=== PATIENT | male | born 1930 | race African-American/Black ===

== ENCOUNTER → 2016-11-28 | Outpatient (CLI) | payer MEDICARE, OTHER ==
[~2016-11-28] MED LIST: ADALAT CC90 MG PO; ALDACTONE 25MG25 MG PO; ALLOPURINOL100 MG PO; ALLOPURINOL300 MG PO; APRESOLINE 25MG25 MG PO; ASPIRIN 81M81 MG/TA2 PO; ASPIRIN E.C. 8181 MG PO; B-12 250 MCG PO; BUPROPION100 MG PO; CARVEDILOL PO; CARVEDILOL25 MG PO; CEPHALEXIN500 M1 PO; CORDARONE200 MG PO; COREG 25MG25 MG/TAB PO; COREG3.125 MG PO; COREG6.25 MG PO; DIFLUCAN 100MG100 MG PO; DIGOXIN PO; DIOVAN80 M1 PO; FLAXSEED OIL1000 MG PO; GLUCOSAMINE 1000; IMDUR 60MG60 MG/TAB PO; IPRATROPIUM BROM3 M1 IH; ISORDIL 20MG20 M1 PO; KLOR-CON 1010 MEQ PO; LASIX 40MG TABL40 MG PO; LIPITOR20 MG PO; LISINOPRIL; LISINOPRIL10 MG PO; LISINOPRIL5 MG PO; MEXITIL 150MG150 MG PO; MOBIC15 MG PO; NATURAL IRON65 MG PO; NORCO 325 MG-51 TAB PO; NORVASC 10MG10 MG PO; NORVASC 5MG5 MG/TAB PO; NORVASC PO; OMNICEF 300MG300 MG PO; ONE-A-DAY MEN'S1 TAB PO; OYSCO 500500 M1 PO; PERCOCET 325 MG1 TA2 PO; PLAVIX 75MG TAB75 MG PO; SODIUM BICARBO650 MG PO; THEO-24 20200 MG/CAP PO; VIAGRA25 MG PO; VITAMIN D31000 IU PO; VITAMINC1000TA PO; ZITHROMAX 250M250 MG PO; ZYLOPRIM 300MG300 MG PO; ZYRTEC 10MG
[2016-11-28 10:48] LABS: ARTERIAL BLD GAS O2 SATURATION 92.4 % (92-100); ARTERIAL BLD GAS TCO2 CT 23.4; ARTERIAL BLOOD GAS BASE EXCESS -0.7 (-2-2); ARTERIAL BLOOD GAS HCO3 22.4 meq/L (22-26); ARTERIAL BLOOD GAS PHT 7.46 C (7.35-7.45); ARTERIAL BLOOD GAS PO2 65.6 mmHg (80-100); ARTERIAL BLOOD GAS PO2T 65.6 (80-100); ARTERIAL BLOOD GAS pH 7.46 (7.35-7.45); OXYHEMOGLOBIN 91.2 %
[2016-11-28 10:49] LABS: ALLEN TEST YES; ALLENS TEST RESULT PASS; ATS? YES
== END ==
LOC: COL.PUL 09:57
PROVIDERS: Physician Assistant
DX: R06.02 Shortness of breath (principal)

== ENCOUNTER → 2016-12-25 | Outpatient (CLI) | payer MEDICARE, OTHER ==
[2016-12-25 15:43] LABS: BASO % 0.4 % (0.0-2.0); EOS # 0.1 (0.0-0.7); EOS % 2.4 % (0-4.0); GRAN # 3.2 (1.4-6.5); GRAN % 64.1 % (42.2-75.2); HEMATOCRIT 37.5 % (42.0-52.0); LYMPH # 1.1 (1.2-3.4); LYMPH % 21.4 % (20.0-51.0); MEAN CELL VOLUME 101 fl (80.0-100.0); MEAN CORPUSCULAR HEMOGLOBIN 32 pg (27.0-31.0); MEAN CORPUSCULAR HGB CONC 32 g/dl (33.0-37.0); MONO # 0.6 (0.1-0.6); MONO % 11.5 % (1.7-9.3); PLATELET COUNT 142 K/mm3 (130-400); RED BLOOD COUNT 3.71 M/mm3 (4.20-5.60); REDCELL DISTRIBUTION WIDTH-CV 13.8 % (11.5-14.5)
[2016-12-25 15:47] LABS: HEMOGLOBIN 11.8 g/dl (13.5-18.0)
[2016-12-25 15:58] LABS: CALCIUM 10.2 mg/dL (8.4-10.2); CREATININE, serum 1.93 mg/dL (0.66-1.25); POTASSIUM 5.1 mmol/L (3.4-5.0)
== END ==
LOC: COL.LAB 14:59
PROVIDERS: Internal Medicine Interventional Cardiology
DX: I72.8 Aneurysm of other specified arteries (principal)

== ENCOUNTER → 2018-06-19 | Outpatient (CLI) | payer MEDICARE, OTHER | LOC: COL.VAS 11:57 | DX: N18.3 Chronic kidney disease, stage 3 (moderate) (principal); N17.9 Acute kidney failure, unspecified | CPT/HCPCS: G0365 ==

== ENCOUNTER 2019-10-28 14:21 | Inpatient (IN) | payer MEDICARE, OTHER ==
[~2019-10-28] VITALS: Ht 167.6 cm; Wt 52.9 kg
[~2019-10-28 14:21] MED LIST changes: +ENTRESTO 24 MG1 EACH PO; +LASIX 20MG TABL20 MG PO; +MASON NATURAL2000 IU PO; +MULTI VITAMINS1 TAB PO; +OMEGA-3 1000 MG1 CAP PO; -VITAMIN D31000 IU PO
--- NOTE | 2019-10-28 15:30 | NUR ---
Patient to room 352 by wheelchair. A&Ox3, reporting pain in legs. No pain medication requested. Nursing staff oriented patient to room ,call light and bed. VSS. Fistula right forearm. at the bedside. No further needs expressed from patient. Call light within reach. Will call Dr Salcedo for additional orders.
[2019-10-28 15:55] VITALS: BP 146/76; PULSE 81; TEMP 98
--- NOTE | 2019-10-28 18:30 | NUR ---
Patient resting in bed, at the bedside. A&Ox3, reporting pain in legs. No pain medication requested. VSS. IV CDI, fluids infusing. PAtient complaints of being cold, warm blankets provided when requested. No further needs expressed from patient. Call light within reach
--- NOTE | 2019-10-28 20:15 | NUR ---
Report received from Adriana JIMENEZ. Pt resting in bed with eyes closed at this time.
[2019-10-28 20:54] LABS: COLLECTION METHOD CLEAN CATCH
[2019-10-28 21:02] LABS: PH 5 (5-8); SQUAMOUS EPITHELIAL 0-2 /hpf; URINE APPEARANCE Clear; URINE BACTERIA None Seen /hpf; URINE BILIRUBIN Negative (NEGATIVE); URINE BLOOD Negative (NEGATIVE); URINE COLOR Yellow; URINE GLUCOSE Negative (NEGATIVE); URINE KETONE Negative (NEGATIVE); URINE LEUKOCYTE ESTERASE Negative (NEGATIVE); URINE NITRATE Negative (NEGATIVE); URINE PROTEIN(semi-quant) 1+ (NEGATIVE); URINE RBC 0-2 /hpf; URINE UROBILINOGEN Negative (NEGATIVE); URINE WBC 0-2 /hpf
[2019-10-28 21:53] VITALS: BP 149/71; PULSE 74; TEMP 97.5
[2019-10-29] VITALS (7 sets, daily range): BP systolic 108–126; BP diastolic 54–63; PULSE 62–78; TEMP 97.4–98.3
--- NOTE | 2019-10-29 00:34 | NUR ---
Pt medication adminstered at this time. Delay was due to non verification of medication X2. Clarification required for dosing required for both medication which was obtained via pt and pts spouse. Following some time after adjustment to medication rec, E pharmacy was informed. Verification in medication on EMAR received. BP appropriate for dosing, medication administered.
[2019-10-29 06:10] LABS: BASO % 0.2 % (0.0-2.0); EOS # 0.2 (0.0-0.7); EOS % 3.5 % (0-4.0); GRAN # 3.3 (1.4-6.5); LYMPH # 0.6 (1.2-3.4); LYMPH % 12.6 % (20.0-51.0); MEAN CELL VOLUME 105 fl (80.0-100.0); MEAN CORPUSCULAR HGB CONC 30 g/dl (33.0-37.0); MEAN PLATELET VOLUME 11.5 fl (7.4-10.4); MONO # 0.5 (0.1-0.6); MONO % 11.5 % (1.7-9.3); PLATELET COUNT 65 K/mm3 (130-400); RED BLOOD COUNT 2.28 M/mm3 (4.20-5.60); REDCELL DISTRIBUTION WIDTH-CV 12.5 % (11.5-14.5)
[2019-10-29 06:15] LABS: INR 1.2 (0.8-3.0)
[2019-10-29 06:16] LABS: HEMATOCRIT 23.9 % (42.0-52.0); HEMOGLOBIN 7.2 g/dl (13.5-18.0); MEAN CORPUSCULAR HEMOGLOBIN 32 pg (27.0-31.0)
[2019-10-29 06:25] LABS: ALBUMIN 3.2 gm/dL (3.5-5.0); BILIRUBIN,TOTAL 0.4 mg/dL (0.0-1.0); CALCIUM 8.4 mg/dL (8.4-10.2); CREATININE, serum 5.1 (0.66-1.25); POTASSIUM 5.3 mmol/L (3.4-5.0); TOTAL PROTEIN 6.1 gm/dL (6.4-8.2)
--- NOTE | 2019-10-29 06:59 | NUR ---
Pt report provided to Prosper JIMENEZ. Pt resting in bed at this time.
--- NOTE | 2019-10-29 09:35 | NUR ---
Pt awake and alert this morning, family in room, no C/O pain at this time, shift assessments complete, left Pt call light in reCH, BED IN LOWEST POSITION.
--- NOTE | 2019-10-29 15:41 | NUR ---
TARIQ met with the patient and his , Ender (ph#[phone]), to discuss discharge plan. The patient lives in [place] with his . He reports needing some assistance with bathing and has a cane and walker. He states that his helps him with bathing. The patient's PCP is Dr. Tyson Philippe and he receives his medications at the [facility]. He reports no difficulties obtaining his meds. The patient does not have advanced directives in EMR, but he states that he does have them completed. He states that his DPOA-HC is his . The patient plans to return home with his upon discharge. No additional needs at this time.
--- NOTE | 2019-10-29 18:42 | NUR ---
Pt resting in the room today, no C/O pain, sat up in the recliner for about 2 hours during the day, VS have remained stable.
[2019-10-30 04:10] VITALS: BP 134/54; PULSE 66; TEMP 97.7
[2019-10-30 08:29] VITALS: BP 144/72; PULSE 69; TEMP 98.4
--- NOTE | 2019-10-30 08:35 | NUR ---
PATIENT ASSESSMENT COMPLETED. HE REPORTS THAT HE HAS HAD NO MORE DIARRHEA SINCE TAKING THE IMMODIUM. HE DENIES ANY PAIN OR NAUSEA.
[2019-10-30 11:54] VITALS: BP 131/72; PULSE 68; TEMP 98
[2019-10-30 12:08] LABS: BASO % 0.2 % (0.0-2.0); EOS # 0.2 (0.0-0.7); EOS % 3.9 % (0-4.0); GRAN # 3.2 (1.4-6.5); GRAN % 68.9 % (42.2-75.2); HEMATOCRIT 25.8 % (42.0-52.0); HEMOGLOBIN 8.1 g/dl (13.5-18.0); LYMPH # 0.6 (1.2-3.4); LYMPH % 13.3 % (20.0-51.0); MEAN CELL VOLUME 103 fl (80.0-100.0); MEAN CORPUSCULAR HEMOGLOBIN 32 pg (27.0-31.0); MEAN CORPUSCULAR HGB CONC 31 g/dl (33.0-37.0); MEAN PLATELET VOLUME 10.7 fl (7.4-10.4); MONO # 0.6 (0.1-0.6); MONO % 12.6 % (1.7-9.3); PLATELET COUNT 76 K/mm3 (130-400); REDCELL DISTRIBUTION WIDTH-CV 12.6 % (11.5-14.5)
[2019-10-30 12:14] LABS: ALBUMIN 3.6 gm/dL (3.5-5.0); CALCIUM 9.4 mg/dL (8.4-10.2); CREATININE, serum 4.67 (0.66-1.25); PHOSPHOROUS 4.5 mg/dL (2.5-4.5)
[2019-10-30 17:14] VITALS: BP 152/77; PULSE 69; TEMP 97.9
--- NOTE | 2019-10-30 17:27 | NUR ---
Patient resting in bed. Denies pain. Has had 2 loose stools. VSS. IV CDI. Fistula CDI. Caregiver at the bedside. No further needs expressed from patient. Call light within reach
[2019-10-30 19:53] VITALS: BP 111/56; PULSE 53; TEMP 98
--- NOTE | 2019-10-30 20:13 | NUR ---
Lying in bed on right side with eyes closed. Opens eyes when name called out. Denies pain. Has had two loose bowel movements in the past hour and would like medication to help stop the loose stools. Patient denies further needs at this time.
--- NOTE | 2019-10-30 22:02 | NUR ---
Lying in bed with eyes closed. Respirations even and unlabored. No signs or symptoms of discomfort noted at this time.
--- NOTE | 2019-10-30 23:02 | NUR ---
Patient voided 75mL dark clear yellow urine. Denies feeling like he still needs to urinate or feeling like bladder is full. Bladder scan completed, results with zero. Patient denies needs at this time.
[2019-10-30 23:30] VITALS: BP 110/59; PULSE 70; TEMP 98.2
--- NOTE | 2019-10-31 00:30 | NUR ---
Lying in bed with eyes closed. Respirations even and unlabored. No signs or symptoms of discomfort noted at this time.
--- NOTE | 2019-10-31 03:23 | NUR ---
Lying in bed with eyes open. Just urinated 50mL clear yellow urine. Bladder scan done at this time and 1mL noted in bladder. Patient denies feeling fullness in bladder or urge to urinate. Denies pain or further needs at this time.
[2019-10-31 03:25] VITALS: BP 130/64; PULSE 68; TEMP 98.2
--- NOTE | 2019-10-31 05:49 | NUR ---
Lying in bed with eyes closed. Respirations even and unlabored. No signs or symptoms of discomfort noted.
[2019-10-31 08:00] VITALS: BP 153/79; PULSE 77
--- NOTE | 2019-10-31 09:34 | NUR ---
PATIENT ASSESSMENT COMPLETED. HE IS RESTING IN BED WITH FRIEND AT HIS BEDSIDE. DENIES OTHER NEEDS
[2019-10-31 12:09] VITALS: BP 132/49; PULSE 70; TEMP 98
[2019-10-31 13:07] LABS: ALBUMIN 3.6 gm/dL (3.5-5.0); CALCIUM 9.2 mg/dL (8.4-10.2); CREATININE, serum 4.31 (0.66-1.25); PHOSPHOROUS 4.2 mg/dL (2.5-4.5)
[2019-10-31 16:00] VITALS: BP 123/59; PULSE 67; TEMP 97.6
--- NOTE | 2019-10-31 16:12 | NUR ---
I TRIED TO GET YOAN TO PUT ON HIS SCD'S AND HE TELLS ME THAT HE DOESN'T WANT THEM ON RIGHT NOW MAYBE LATER.
--- NOTE | 2019-10-31 19:43 | NUR ---
Lying in bed with eyes closed. Eyes open when name called out. Denies pain or any loose stools. Significant other at bedside. IV infusing without difficulty. Patient denies any needs or concerns at this time.
[2019-10-31 20:08] VITALS: BP 105/57; PULSE 69; TEMP 98.2
[2019-10-31 22:44] VITALS: BP 115/63; PULSE 65; TEMP 97.9
--- NOTE | 2019-10-31 23:42 | NUR ---
Lying in bed with eyes closed. Eyes open when name called out. Denies pain or any discomfort. Denies any needs or concerns at this time.
--- NOTE | 2019-11-01 01:46 | NUR ---
Lying on left side in bed with eyes closed. Bipap on. Respirations even and unlabored. No signs or symptoms of discomfort noted.
--- NOTE | 2019-11-01 01:48 | NUR ---
Lying supine in bed with eyes closed. Respirations even and unlabored. No signs or symptoms of discomfort noted at this time.
[2019-11-01 03:03] VITALS: BP 122/52; PULSE 66; TEMP 97.8
--- NOTE | 2019-11-01 03:36 | NUR ---
Lying on right side in bed. Denies pain or any needs at this time.
--- NOTE | 2019-11-01 07:15 | NUR ---
Report received from BARBARA Vann. Pt in bed resting with at bedside, sleeping, will continue to monitor.
[2019-11-01 07:43] VITALS: BP 135/74; PULSE 59; TEMP 98.2
[2019-11-01 07:44] LABS: BASO % 0.5 % (0.0-2.0); EOS # 0.2 (0.0-0.7); EOS % 4.1 % (0-4.0); GRAN % 67.2 % (42.2-75.2); LYMPH # 0.6 (1.2-3.4); LYMPH % 13.2 % (20.0-51.0); MEAN CELL VOLUME 103 fl (80.0-100.0); MEAN CORPUSCULAR HGB CONC 32 g/dl (33.0-37.0); MEAN PLATELET VOLUME 11.1 fl (7.4-10.4); MONO # 0.7 (0.1-0.6); MONO % 14.8 % (1.7-9.3); PLATELET COUNT 76 K/mm3 (130-400); RED BLOOD COUNT 2.47 M/mm3 (4.20-5.60); REDCELL DISTRIBUTION WIDTH-CV 12.9 % (11.5-14.5)
[2019-11-01 07:45] LABS: HEMATOCRIT 25.4 % (42.0-52.0); HEMOGLOBIN 8.1 g/dl (13.5-18.0); MEAN CORPUSCULAR HEMOGLOBIN 33 pg (27.0-31.0)
[2019-11-01 07:53] LABS: ALBUMIN 3.5 gm/dL (3.5-5.0); CALCIUM 8.8 mg/dL (8.4-10.2); PHOSPHOROUS 4.3 mg/dL (2.5-4.5); POTASSIUM 5.6 mmol/L (3.4-5.0)
--- NOTE | 2019-11-01 10:00 | NUR ---
Assessment charted. Pt feeling well, anticipating discharge today. INT to LFA, RFA A/V fistula. Up to shower, will continue to monitor.
--- NOTE | 2019-11-01 11:03 | NUR ---
The patient is to discharge back home with his today, 11/01. SW met with the patient and his to present and explain the IM form. The patient was sleeping. The patient's verbalized understanding, signed, and she was provided a copy. No additional needs at this time.
[2019-11-01 12:42] VITALS: BP 125/60; PULSE 62; TEMP 98.1
--- NOTE | 2019-11-01 12:56 | NUR ---
Discharge teaching completed at this time. pt received discharge packet, INT dc'd, tip intact. Pt wants to eat lunch and then will leave via w/c with all bleongings after lunch. Criteria met.
== END 2019-11-01 13:00 | disposition home or self-care (01) | DRG 682 ==
LOC: MEDICAL 14:21
PROVIDERS: ADMIT Internal Medicine Nephrology
DX: N17.9 Acute kidney failure, unspecified (principal); E43 Unspecified severe protein-calorie malnutrition; I13.0 Hypertensive heart and chronic kidney disease with heart failure and stage 1 through stage 4 chronic kidney disease, or unspecified chronic kidney disease; K52.9 Noninfective gastroenteritis and colitis, unspecified; N18.4 Chronic kidney disease, stage 4 (severe); I50.9 Heart failure, unspecified; D63.1 Anemia in chronic kidney disease; I27.20 Pulmonary hypertension, unspecified; I73.9 Peripheral vascular disease, unspecified; F32.9 Major depressive disorder, single episode, unspecified; G89.29 Other chronic pain; Z95.0 Presence of cardiac pacemaker; Z87.440 Personal history of urinary (tract) infections; Z87.01 Personal history of pneumonia (recurrent); Z79.82 Long term (current) use of aspirin; Z79.891 Long term (current) use of opiate analgesic; Z87.891 Personal history of nicotine dependence

== ENCOUNTER 2020-06-09 18:39 | Emergency (ER) | payer MEDICARE, OTHER ==
[~2020-06-09] VITALS: Ht 170.2 cm; Wt 63.6 kg
[~2020-06-09 18:39] MED LIST changes: +APRESOLINE 10MG10 MG PO; +COREG 6.256.25 MG/TA PO
[2020-06-09 18:43] VITALS: TEMP 98.9
[2020-06-09 19:12] LABS: BASO # 0.1 (0.0-0.2); EOS # 0.2 (0.0-0.7); EOS % 4.5 % (0-4.0); GRAN # 2.8 (1.4-6.5); GRAN % 58.6 % (42.2-75.2); HEMATOCRIT 40.6 % (42.0-52.0); HEMOGLOBIN 12.2 g/dl (13.5-18.0); LYMPH # 0.8 (1.2-3.4); LYMPH % 15.5 % (20.0-51.0); MEAN CELL VOLUME 108 fl (80.0-100.0); MEAN CORPUSCULAR HEMOGLOBIN 32 pg (27.0-31.0); MEAN CORPUSCULAR HGB CONC 30 g/dl (33.0-37.0); PLATELET COUNT 123 K/mm3 (130-400); RED BLOOD COUNT 3.76 M/mm3 (4.20-5.60); REDCELL DISTRIBUTION WIDTH-CV 13.9 % (11.5-14.5)
[2020-06-09 19:18] LABS: ALBUMIN 4.1 gm/dL (3.5-5.0); BILIRUBIN,TOTAL 0.7 mg/dL (0.0-1.0); CALCIUM 9.3 mg/dL (8.4-10.2); CREATININE, serum 1.97 (0.66-1.25); POTASSIUM 3.9 mmol/L (3.4-5.0); TOTAL PROTEIN 8.1 gm/dL (6.4-8.2)
[2020-06-09 19:33] LABS: TROPONIN-I 0.045 ng/mL (0.000-0.035)
[2020-06-09 20:10] LABS: MAGNESIUM 1.9 mg/dL (1.6-2.3); PHOSPHOROUS 2.9 mg/dL (2.5-4.5)
[2020-06-09] MEDS ORDERED: COREG12.5 MG PO (22:50)
[2020-06-09 23:07] VITALS: BP 165/101; PULSE 73
== END 2020-06-09 23:07 | disposition home or self-care (01) ==
LOC: COL.ER 18:39
PROVIDERS: Emergency Medicine
DX: N18.6 End stage renal disease (principal); I12.0 Hypertensive chronic kidney disease with stage 5 chronic kidney disease or end stage renal disease; J44.9 Chronic obstructive pulmonary disease, unspecified; I50.9 Heart failure, unspecified; Z99.2 Dependence on renal dialysis

== ENCOUNTER 2020-07-18 11:22 | Outpatient (CLI) | payer MEDICARE, OTHER ==
[~2020-07-18] VITALS: Ht 170.2 cm; Wt 54.1 kg
[2020-07-18] VITALS (8 sets, daily range): BP systolic 130–162; BP diastolic 89–111; PULSE 69–107; TEMP 98
[~2020-07-18 11:22] MED LIST changes: +COREG12.5 MG PO
[2020-07-18] MEDS ORDERED: OYSCO 500 + D 51 TAB PO (13:04)
[2020-07-18] MEDS ORDERED: COREG 6.256.25 MG/TA PO (13:05)
--- NOTE | 2020-07-18 13:05 | NUR ---
SEE MERGE DOCUMENTATION FOR MEDICATION ADMINISTRATION TIMES AND INTRA/POST PROCEDURE SEDATION ASSESSMENTS.
[2020-07-18] MEDS ORDERED: VITAMIN C500 MG PO (13:08)
[2020-07-18] MEDS ORDERED: NEPHROCAP PO (13:08)
[2020-07-18] MEDS ORDERED: LASIX 80MG TABL80 MG PO (13:09)
--- NOTE | 2020-07-18 16:20 | NUR ---
INT discontinued intact after Dr. Estrada talked with pt. Discharge instructions given. Pt spouse taking him to bathroom
--- NOTE | 2020-07-18 16:45 | NUR ---
Transferred to private car by ridge
== END 2020-07-18 16:45 | disposition home or self-care (01) ==
LOC: COL.CAR 11:22
DX: T82.838A Hemorrhage due to vascular prosthetic devices, implants and grafts, initial encounter (principal); N18.6 End stage renal disease; Z96.641 Presence of right artificial hip joint; F17.210 Nicotine dependence, cigarettes, uncomplicated
CPT/HCPCS: C1894; J1644; J2250; J3010; Q9967

== ENCOUNTER → 2020-10-12 | Outpatient (CLI) | payer MEDICARE, OTHER ==
[~2020-10-12] MED LIST changes: +COZAAR 25MG25 MG/TAB PO; +EPA FISH OIL1 SGL PO; +LASIX 80MG TABL80 MG PO; +NEPHROCAP PO; +NORCO 325 MG-7.1 TAB PO; +ONE-A-DAY ESSE1 EACH PO; +OYSCO 500 + D 51 TAB PO; +VITAMIN C500 MG PO; +[UNRECOGNIZED DRUG - REMARK] PO
== END ==
LOC: COL.RAD 12:20
DX: I72.4 Aneurysm of artery of lower extremity (principal)
CPT/HCPCS: Q9967

== ENCOUNTER 2021-01-22 12:52 | Observation (INO) | payer MEDICARE, OTHER ==
[~2021-01-22] VITALS: Ht 172.7 cm; Wt 59.6 kg
[~2021-01-22 12:52] MED LIST changes: -NORCO 325 MG-7.1 TAB PO; +Nepro PO; -ONE-A-DAY ESSE1 EACH PO
[2021-01-22 13:20] LABS: BASO % 0.4 % (0.0-2.0); EOS # 0.3 (0.0-0.7); EOS % 5.2 % (0-4.0); GRAN # 3.6 (1.4-6.5); GRAN % 71.4 % (42.2-75.2); HEMOGLOBIN 10.1 g/dl (13.5-18.0); LYMPH # 0.6 (1.2-3.4); LYMPH % 11.6 % (20.0-51.0); MEAN CELL VOLUME 112 fl (80.0-100.0); MEAN CORPUSCULAR HEMOGLOBIN 35 pg (27.0-31.0); MEAN CORPUSCULAR HGB CONC 32 g/dl (33.0-37.0); MEAN PLATELET VOLUME 10.5 fl (7.4-10.4); MONO # 0.6 (0.1-0.6); MONO % 11.2 % (1.7-9.3); PLATELET COUNT 131 K/mm3 (130-400); RED BLOOD COUNT 2.85 M/mm3 (4.20-5.60); REDCELL DISTRIBUTION WIDTH-CV 12.7 % (11.5-14.5)
[2021-01-22 13:22] LABS: ALBUMIN 4.1 gm/dL (3.5-5.0); BILIRUBIN,TOTAL 0.6 mg/dL (0.0-1.0); CALCIUM 9.2 mg/dL (8.4-10.2); CREATININE, serum 5.39 (0.66-1.25); POTASSIUM 4.1 mmol/L (3.4-5.0); TOTAL PROTEIN 7.9 gm/dL (6.4-8.2)
[2021-01-22 13:23] LABS: HEMATOCRIT 31.9 % (42.0-52.0)
[2021-01-22 13:34] LABS: TROPONIN-I 0.067 ng/mL (0.000-0.035)
[2021-01-22 13:47] LABS: INR 1.1 (0.8-3.0); PROTHROMBIN TIME 12.5 SECONDS (9.7-12.8)
[2021-01-22] MEDS ORDERED: RENVELA800 MG PO (14:34)
[2021-01-22] MEDS ORDERED: APRESOLINE 10MG10 MG PO (14:35)
--- NOTE | 2021-01-22 15:55 | NUR ---
PT BROUGHT TO MEDICAL FLOOR AROUND 1530. ASSESSMENT COMPLETED. PT IS SEEN BY BARBARA GOODRICH WITH DR. STODDARD.
[2021-01-22 16:31] VITALS: BP 151/81; PULSE 81; TEMP 97.8
--- NOTE | 2021-01-22 18:41 | NUR ---
PT LAYING IN BED AT THIS TIME. THERE ARE NO COMPLAINTS. PT IS SLEEPING, AND IS AT BEDSIDE. FALL PRECAUTIONS ARE IN PLACE, AND BED ALARM IS ON. WALKER HAS BEEN PLACED IN HIS ROOM FOR AMBULATION. PATIENT IS AWARE OF THE NEED TO CALL IF HE'D LIKE TO GET UP TO THE BATHROOM. WILL REPORT TO APPELLATE CONFEREE.
[2021-01-22 19:07] VITALS: BP 120/74; PULSE 77; TEMP 98
--- NOTE | 2021-01-22 20:00 | NUR ---
PATIENT WAS RECEIVED FAIR IN BED ON O2 THERAPY.DUE MEDS GIVEN .DENIES PAIN.NO OTHER NEEDS AT THIS TIME.
[2021-01-22 23:24] VITALS: BP 133/70; PULSE 70; TEMP 98.2
[2021-01-23 05:23] VITALS: BP 129/83; PULSE 72; TEMP 97.6
--- NOTE | 2021-01-23 06:09 | NUR ---
PATIENT HAD A CALM NIGHT,ON O2 VIA NC 4L.HE IS FOR DIALYSIS TODAY.DENIES PAIN.NO DUE MEDS AT THIS TIME.
--- NOTE | 2021-01-23 06:50 | NUR ---
PATIENT TAKEN TO DIALYSIS VIA WHEELCHAIR BY DIALYSIS NURSE. WILL WAIT FOR PATIENT ARRIVAL BACK TO ROOM 307.
[2021-01-23 07:21] LABS: BASO % 0.6 % (0.0-2.0); EOS # 0.3 (0.0-0.7); EOS % 5.7 % (0-4.0); GRAN # 3.3 (1.4-6.5); GRAN % 64.8 % (42.2-75.2); LYMPH # 0.8 (1.2-3.4); LYMPH % 15.3 % (20.0-51.0); MEAN CELL VOLUME 114 fl (80.0-100.0); MEAN CORPUSCULAR HGB CONC 32 g/dl (33.0-37.0); MEAN PLATELET VOLUME 10.2 fl (7.4-10.4); MONO # 0.7 (0.1-0.6); MONO % 13.4 % (1.7-9.3); PLATELET COUNT 103 K/mm3 (130-400); RED BLOOD COUNT 2.65 M/mm3 (4.20-5.60); REDCELL DISTRIBUTION WIDTH-CV 12.7 % (11.5-14.5)
[2021-01-23 07:23] LABS: HEMATOCRIT 30.3 % (42.0-52.0); HEMOGLOBIN 9.6 g/dl (13.5-18.0); MEAN CORPUSCULAR HEMOGLOBIN 36 pg (27.0-31.0)
[2021-01-23 07:31] LABS: ALBUMIN 3.7 gm/dL (3.5-5.0); CALCIUM 9.1 mg/dL (8.4-10.2); CREATININE, serum 7.62 (0.66-1.25); PHOSPHOROUS 4.3 mg/dL (2.5-4.5); POTASSIUM 4.3 mmol/L (3.4-5.0)
--- NOTE | 2021-01-23 09:30 | NUR ---
PATIENT ARRIVED BACK TO ROOM 307 FROM DIALYSIS. PATIENT RESTING IN BED. PRESENT AT THE BEDSIDE. PATIENT DENYING PAIN. NO NEEDS AT THIS TIME.
[2021-01-23 09:35] VITALS: BP 101/65; PULSE 74; TEMP 98.2
--- NOTE | 2021-01-23 09:36 | NUR ---
Patient tolerated HD tx today, removed 1L of fluid during a 2 hr tx. Next HD tx planned for tomorrow, Friday01/24/21 @ 0800.
[2021-01-23 10:54] VITALS: BP 113/67; PULSE 75; TEMP 98.3
--- NOTE | 2021-01-23 13:25 | NUR ---
ATTEMPTED TO WALK ON RA BUT PERFUSION IN FINGER IS POOR UNABLE TO GET A SPO2 UNTIL AFTER SITTING ON SIDE OF BED FOR SEVERAL MINUTES
--- NOTE | 2021-01-23 15:21 | NUR ---
Electrical Panel Builder met with patient and patient's , Ender (ph#[phone]) to discuss discharge planning. Patient lives in [place] with his and sees Dr. Tyson Philippe for primary care. Patient obtains medications from [facility] with no difficulties. Patient has a walker, wheelchair, and home oxygen. Patient obtains oxygen supplies through the [place]. Patient reports his , Ender helps him with dressing and bathing. Patient reports he had home health in the past but patient and his advised they are not interested in HH services at this time. Patient reports his , Ender is DPOA-HC. PT/OT have been ordered for patient. Patient declined to work with PT today and told PT that he walks fine with his walker. Patient plans to return home upon discharge.
[2021-01-23 15:34] VITALS: BP 129/77; PULSE 75; TEMP 98.7
--- NOTE | 2021-01-23 19:00 | NUR ---
PATIENT HAD UNEVENTFUL AFTERNOON. PATIENT ASLEEP IN BED. REPORT GIVEN TO NIGHT NURSE.
--- NOTE | 2021-01-23 19:05 | NUR ---
Received report from Zoë. Patient asleep in bed. Bed alarm on.
[2021-01-23 19:41] VITALS: BP 120/62; PULSE 86; TEMP 98.8
--- NOTE | 2021-01-23 21:00 | NUR ---
Patient awake. Assesment done. Patient denies pain. He is on O2 at 2lpm via NC. He denies needs at this time. Call light within reach. Instructed to call for help if he needs to go to the bathroom.
[2021-01-23 23:04] VITALS: BP 110/46; PULSE 78; TEMP 98.5
[2021-01-24 03:17] VITALS: BP 136/71; PULSE 109; PULSE 78; TEMP 98.4
--- NOTE | 2021-01-24 05:52 | NUR ---
Patient had uneventful night. He was asleep most of the night. He does call if he needs to go to the bathroom. He denies pain.
[2021-01-24 06:20] LABS: BASO % 0.6 % (0.0-2.0); EOS # 0.3 (0.0-0.7); EOS % 6.6 % (0-4.0); GRAN # 3.2 (1.4-6.5); GRAN % 64.8 % (42.2-75.2); LYMPH # 0.7 (1.2-3.4); LYMPH % 14.3 % (20.0-51.0); MEAN CELL VOLUME 116 fl (80.0-100.0); MEAN CORPUSCULAR HGB CONC 31 g/dl (33.0-37.0); MEAN PLATELET VOLUME 10.6 fl (7.4-10.4); MONO # 0.7 (0.1-0.6); MONO % 13.5 % (1.7-9.3); PLATELET COUNT 102 K/mm3 (130-400); RED BLOOD COUNT 2.67 M/mm3 (4.20-5.60); REDCELL DISTRIBUTION WIDTH-CV 12.7 % (11.5-14.5)
[2021-01-24 06:23] LABS: HEMATOCRIT 30.9 % (42.0-52.0); HEMOGLOBIN 9.7 g/dl (13.5-18.0); MEAN CORPUSCULAR HEMOGLOBIN 36 pg (27.0-31.0)
[2021-01-24 06:34] LABS: ALBUMIN 3.7 gm/dL (3.5-5.0); CALCIUM 9.1 mg/dL (8.4-10.2); CREATININE, serum 6.51 (0.66-1.25); PHOSPHOROUS 3.5 mg/dL (2.5-4.5); POTASSIUM 4.2 mmol/L (3.4-5.0)
[2021-01-24 07:30] VITALS: BP 128/70; PULSE 67; TEMP 97.6
--- NOTE | 2021-01-24 08:47 | NUR ---
Assessment complete. Patient resting in bed watching TV. Telemetry on and rhythm regular/paced. O2 on at 2L, lung sounds clear all alanis, with breathing unlabored and SpO2 at 95%. Patient has no complaints of Shortness of Breath at this time. INT in LUE no redness or swelling. AV fistula to right arm has thrill and bruit present. Right internal jugular cathether CDI with tegaderm dressing. Patient denies pain at this time.
--- NOTE | 2021-01-24 10:40 | NUR ---
Initial visit; Patient thanked Photoengraving Supervisor for stopping and offering Spiritual Care.
[2021-01-24 10:57] VITALS: BP 137/75; PULSE 65; TEMP 97.5
--- NOTE | 2021-01-24 12:47 | NUR ---
PT HAS HAD UNEVENTFUL MORNING. PT IS WANTING TO GO HOME, DR. PUENTE HAS TOLD THE PATIENT HE CAN GO HOME, DR. STODDARD WILL EVALUATE THE ECHO, AND THEN MAKE A DECISION. OTHER THAN THAT, THERE ARE NO CONCERNS. PATIENT HAS REMAINED ON O2 AT 2L.
[2021-01-24] MEDS ORDERED: XANAX .25M0.25 MG/TA PO (14:30)
[2021-01-24] MEDS ORDERED: STIOLTO RESPIMAT4 GM IH (14:33)
[2021-01-24 15:52] VITALS: BP 158/78; PULSE 72; TEMP 98.1
--- NOTE | 2021-01-24 16:08 | NUR ---
Radar Signal Processing Engineer collaborated with Dr. Salcedo about discharge planning, as patient will discharge home today. Patient has a oxygen concentrator at home for night time oxygen, but patient does not have contiuous oxygen set up and will need it for discharge. Patient qualifies for 3 liters, continuous. TARIQ collaborated with Rhianna Ortega, [place] SW and Rc Ingram from the [place] [facility] about oxygen order. TARIQ faxed referral and order to fax#[phone]. Rc advised oxygen order has been sent to their [place] provider and oxygen will be delivered around 1730. TARIQ met with patient and patient's to [facility] and follow up to set up portable system at home as patient has dialysis on Friday. TARIQ collaborated the above information to [place]. No additional needs at this time.
--- NOTE | 2021-01-24 18:17 | NUR ---
PT IS DISCHARGING AT THIS TIME WITH CAREGIVER. NO FURTHER CONCERNS.
[2021-08-15] MEDS ORDERED: PLAVIX 75MG TAB75 MG PO (09:34)
[2021-08-17] MEDS ORDERED: PREDNISONE10 MG PO (14:05)
[2021-08-17] MEDS ORDERED: RT ADVAIR 228 DISKUS IH (14:07)
[2021-08-17] MEDS ORDERED: SPIRIVA RE2.5 MCG/Ac IH (14:08)
[2021-09-10] MEDS ORDERED: REGLAN 5MG T5 MG/TAB PO (02:02)
[2021-09-13] MEDS ORDERED: CEFTIN500 MG PO (11:51)
[2021-09-13] MEDS ORDERED: MONODOX100 PO (11:51)
[2021-09-13] MEDS ORDERED: MUCUS RELIEF200 MG PO (11:52)
[2021-09-13] MEDS ORDERED: UNIPHYL 400MG400 MG PO (11:57)
[2021-09-13] MEDS ORDERED: PREDNISONE10 MG PO (11:57)
== END 2021-01-24 18:17 | disposition home or self-care (01) ==
LOC: COL.ER 12:52 → MEDICAL 14:36
PROVIDERS: Emergency Medicine; ADMIT Internal Medicine Nephrology
DX: R41.82 Altered mental status, unspecified (principal); N18.6 End stage renal disease; I48.0 Paroxysmal atrial fibrillation; I44.0 Atrioventricular block, first degree; I48.91 Unspecified atrial fibrillation; I27.20 Pulmonary hypertension, unspecified; I16.0 Hypertensive urgency; I50.23 Acute on chronic systolic (congestive) heart failure; I13.2 Hypertensive heart and chronic kidney disease with heart failure and with stage 5 chronic kidney disease, or end stage renal disease; I73.9 Peripheral vascular disease, unspecified; J44.9 Chronic obstructive pulmonary disease, unspecified; J96.11 Chronic respiratory failure with hypoxia; D63.1 Anemia in chronic kidney disease; G89.29 Other chronic pain; F32.9 Major depressive disorder, single episode, unspecified; Z96.641 Presence of right artificial hip joint; Z86.79 Personal history of other diseases of the circulatory system; Z79.891 Long term (current) use of opiate analgesic; Z79.899 Other long term (current) drug therapy; Z99.2 Dependence on renal dialysis; Z96.659 Presence of unspecified artificial knee joint; Z87.891 Personal history of nicotine dependence
CPT/HCPCS: G0378; J1644; J7030

== ENCOUNTER 2021-03-05 13:23 | Inpatient (IN) | payer MEDICARE, OTHER ==
[~2021-03-05] VITALS: Ht 167.6 cm; Wt 60.7 kg
[~2021-03-05 13:23] MED LIST changes: +RENVELA800 MG PO; +STIOLTO RESPIMAT4 GM IH; +XANAX .25M0.25 MG/TA PO
[2021-03-05 14:14] LABS: BASO # 0.1 (0.0-0.2); BASO % 0.8 % (0.0-2.0); EOS # 0.2 (0.0-0.7); EOS % 3.5 % (0-4.0); GRAN # 4.9 (1.4-6.5); GRAN % 74.7 % (42.2-75.2); LYMPH # 0.4 (1.2-3.4); LYMPH % 6.1 % (20.0-51.0); MEAN CELL VOLUME 113 fl (80.0-100.0); MEAN CORPUSCULAR HGB CONC 30 g/dl (33.0-37.0); MEAN PLATELET VOLUME 10.4 fl (7.4-10.4); MONO # 0.9 (0.1-0.6); MONO % 14.3 % (1.7-9.3); PLATELET COUNT 197 K/mm3 (130-400); RED BLOOD COUNT 2.17 M/mm3 (4.20-5.60); REDCELL DISTRIBUTION WIDTH-CV 23.8 % (11.5-14.5)
[2021-03-05 14:18] LABS: HEMATOCRIT 24.6 % (42.0-52.0); HEMOGLOBIN 7.3 g/dl (13.5-18.0); MEAN CORPUSCULAR HEMOGLOBIN 34 pg (27.0-31.0)
[2021-03-05 14:27] LABS: ALBUMIN 3.7 gm/dL (3.5-5.0); BILIRUBIN,TOTAL 0.6 mg/dL (0.0-1.0); CALCIUM 8.8 mg/dL (8.4-10.2); CREATININE, serum 3.89 (0.66-1.25); POTASSIUM 3.7 mmol/L (3.4-5.0); TOTAL PROTEIN 7.5 gm/dL (6.4-8.2)
[2021-03-05 15:17] LABS: TROPONIN-I 0.067 ng/mL (0.000-0.035)
[2021-03-05] MEDS ORDERED: ASPIRIN 81M81 MG/TA2 PO (15:53)
[2021-03-05] MEDS ORDERED: PLAVIX 75MG TAB75 MG PO (15:55)
[2021-03-05] MEDS ORDERED: PROAIR HFA0.09 MG/AC IH (15:56)
[2021-03-05] MEDS ORDERED: DULCOLAX STOOL100 MG PO (15:57)
[2021-03-05] MEDS ORDERED: PROTONIX 40MG T40 MG PO (16:00)
--- NOTE | 2021-03-05 16:35 | NUR ---
Pt arrived to medical unit room 314 from ED at this time via stretcher. Oriented pt to room. Admission assessments and med rec completed. notified of pt's arrival. Pt on 4 lpm NC upon arrival, sats 100% and states wears 3 lpm at home, O2 decreased to 3 lpm. Heart RRR. A&Ox4. 3+ pitting edema to bilateral feet. Entire right arm edematous and skin tight, skin cool to touch. Pt reports pain 7/10 and has difficult time w/right hand solar thermal installer. Arm elevated on pillow. Fistula to right upper arm w/palpable thrill and audible bruit. Right chest dialysis cath in place, dressing CDI. IV to left forearm w/o s/s complication. Call light in reach. Continuing to monitor.
[2021-03-05] MEDS ORDERED: NATURE'S BLEND100 M2 PO (16:52)
[2021-03-05] MEDS ORDERED: B COMPLEX #11 TA1 PO (16:53)
[2021-03-05 17:16] VITALS: BP 100/65; PULSE 93; TEMP 97.9
[2021-03-05 20:59] VITALS: BP 120/66; PULSE 68; TEMP 98.3
--- NOTE | 2021-03-05 21:00 | NUR ---
Report received, assumed care for restaurant shift supervisor at 1900. Assessment complete. VS stable. A&Ox3. Denies shortness of breath/nausea. O2@3L/NC with sats in the high 90s. Rating pain 8/10 to right upper extremity-described as constant throbbing with intermittent sharpness. [place] given per dr order. Right upper extremity edematous with erythema. Elevated on pillows. Right chest dialysis cath dressing CDI. Plan of care discussed for this shift to include HS meds/pain control/elvating extremity/repositioning/calling for questions/concerns. Verbalizes understanding/denies needs. Call light in reach. Will monitor.
[2021-03-06] VITALS (7 sets, daily range): BP systolic 96–141; BP diastolic 64–80; PULSE 49–98; TEMP 97.4–98.6
--- NOTE | 2021-03-06 01:00 | NUR ---
Rating pain 8/10 to right upper extremity-described as constant throbbing-norco given per dr krueger.
--- NOTE | 2021-03-06 02:00 | NUR ---
Resting eyes closed. No s/s of pain/discomfort.
--- NOTE | 2021-03-06 05:07 | NUR ---
Rating pain 7/10 to right upper extremity-described as constant throbbing-norco given per dr krueger. Denies any other questions/concerns. Call light in reach. Will monitor.
--- NOTE | 2021-03-06 08:09 | NUR ---
Assessment completed, alert/oriented, vital signs stable, right arm is still very swollen and tender to touch/manipulation or movment, he denies pain otherwise, RUE fistula + bruit/thrill, using IJ central line for dialysis for now, heart RRR, lungs CTA, abd soft and nontender, BS +, he has eaten breakfast, denies other needs, and I have just taken him to dialysis by bed
[2021-03-06 08:28] LABS: BASO % 0.5 % (0.0-2.0); EOS # 0.3 (0.0-0.7); EOS % 5.3 % (0-4.0); GRAN # 3.6 (1.4-6.5); GRAN % 65.3 % (42.2-75.2); LYMPH # 0.8 (1.2-3.4); LYMPH % 14.9 % (20.0-51.0); MEAN CELL VOLUME 114 fl (80.0-100.0); MEAN CORPUSCULAR HGB CONC 30 g/dl (33.0-37.0); MEAN PLATELET VOLUME 10.1 fl (7.4-10.4); MONO # 0.8 (0.1-0.6); MONO % 13.8 % (1.7-9.3); PLATELET COUNT 168 K/mm3 (130-400); REDCELL DISTRIBUTION WIDTH-CV 23.8 % (11.5-14.5)
[2021-03-06 08:36] LABS: HEMATOCRIT 22.7 % (42.0-52.0); HEMOGLOBIN 6.9 g/dl (13.5-18.0); MEAN CORPUSCULAR HEMOGLOBIN 35 pg (27.0-31.0)
[2021-03-06 08:50] LABS: ALBUMIN 3.3 gm/dL (3.5-5.0); CREATININE, serum 6.19 (0.66-1.25); PHOSPHOROUS 2.2 mg/dL (2.5-4.5); POTASSIUM 4.2 mmol/L (3.4-5.0)
--- NOTE | 2021-03-06 11:14 | NUR ---
Patient tolerated HD tx with 1.6L fluid removal. Next planned tx tomorrow 03/07/21 @ 6559 @ [facility].
--- NOTE | 2021-03-06 15:12 | NUR ---
Seam Checker met with patient and patient's , Ender (ph#[phone]) to discuss discharge planning. Patient lives in [place] with his and sees Dr. Philippe for primary care. Patient obtains medications from [facility] and [facility]. Patient also has a walker and wheelchair at home. Patient reports he receives some assistance with ADLS from his , Ender. Patient also advised he has home health services, however he cannot remember the agency. Patient advised he has DPOA-HC which designates his . Patient plans to return home upon discharge with continued home health. SW contacted [facility] and [facility], both do not serve patient. SW also left a message from Monica at [facility] and will continue to follow up. Discharge Plan: Home with continued home health.
[2021-03-07 03:33] VITALS: BP 111/65; PULSE 90; TEMP 98.2
--- NOTE | 2021-03-07 06:04 | NUR ---
PT. HAD UNEVENTFUL NIGHT. SLEPT THROUGHOUT NIGHT. VSS. 02 ROOM AIR. PT CURRENTLY EXPRESSES NO NEEDS AT THIS TIME. CALL LIGHT WITHIN REACH.
[2021-03-07 07:33] VITALS: BP 147/57; PULSE 108; TEMP 98.8
--- NOTE | 2021-03-07 09:00 | NUR ---
PT REFUSING DIALYSIS DUE TO PAIN IN R ARM 08/12. RUBEN RN ALERTED, NORCO GIVEN TO PT. NORCO NOT RESULTING IN PAIN RELIEF, HOT PACK PLACED ON R ARM. PT TEARFUL. CALLED DR STODDARD ABOUT LACK OF PAIN RELIEF AND PT REFUSING DIALYSIS, DILAUDID ORDERS GIVEN OVER THE PHONE AND ORDERS FOR LABS GIVEN, WILL HOLD DIALYSIS UNTIL BLOOD IS READY FROM BLOOD BANK. WAITING ON BLOOD BANK TO RETURN CALL TO SEE IF BLOOD WILL BE AVAILABLE TODAY OR TOMORROW. DILAUDID GIVEN TO PT AND ARM REPOSITIONED.
--- NOTE | 2021-03-07 10:33 | NUR ---
YOSVANY FIRM AND TENDER. PT DENYING PAIN AT THIS TIME, PT CURIOUS ABOUT BLOOD TRANSFUSION AND DIALYSIS, TOLD HIM I WOULD LET HIM KNOW WHEN I GOT MORE INFORMATION. PT TOOK MEDICATIONS, ASSESSMENT PERFORMED, MEDICATIONS GIVEN, COREG HELD FOR POTENTIAL DIALYSIS. PT ATE SOME OF BREAKFAST. NO OTHER NEEDS AT THIS TIME.
[2021-03-07 10:34] LABS: BASO % 0.5 % (0.0-2.0); EOS # 0.2 (0.0-0.7); EOS % 3.2 % (0-4.0); GRAN # 4.2 (1.4-6.5); GRAN % 71.6 % (42.2-75.2); LYMPH # 0.6 (1.2-3.4); LYMPH % 10.4 % (20.0-51.0); MEAN CELL VOLUME 112 fl (80.0-100.0); MEAN CORPUSCULAR HGB CONC 31 g/dl (33.0-37.0); MEAN PLATELET VOLUME 10.3 fl (7.4-10.4); MONO # 0.8 (0.1-0.6); MONO % 13.8 % (1.7-9.3); PLATELET COUNT 187 K/mm3 (130-400); RED BLOOD COUNT 2.01 M/mm3 (4.20-5.60); REDCELL DISTRIBUTION WIDTH-CV 22.8 % (11.5-14.5)
[2021-03-07 10:42] LABS: HEMATOCRIT 22.6 % (42.0-52.0); HEMOGLOBIN 6.9 g/dl (13.5-18.0); MEAN CORPUSCULAR HEMOGLOBIN 34 pg (27.0-31.0)
[2021-03-07 10:43] LABS: ALBUMIN 3.3 gm/dL (3.5-5.0); CALCIUM 8.9 mg/dL (8.4-10.2); CREATININE, serum 4.95 (0.66-1.25); PHOSPHOROUS 1.7 mg/dL (2.5-4.5); POTASSIUM 4.1 mmol/L (3.4-5.0)
--- NOTE | 2021-03-07 11:35 | NUR ---
PT DENYING PAIN AT THIS TIME. R ARM ELEVATED WITH HEAT PACK APPLIED. BLOOD BANK SAID BLOOD SHOULD BE HERE IN AFTERNOON, JESSICA JOHNSON AND RUBEN JIMENEZ NOTIFIED.
[2021-03-07 11:47] VITALS: BP 119/64; PULSE 100; TEMP 98.5
--- NOTE | 2021-03-07 13:08 | NUR ---
First visit from the sales director. No needs right now.
[2021-03-07 15:58] VITALS: BP 118/63; PULSE 93; TEMP 98.6
--- NOTE | 2021-03-07 16:21 | NUR ---
Olive Grader contacted Monica at [facility] who confirmed they provide nursing and wound care services for patient. SW faxed clinical updates and also updated ALEX Payne that patient will need home health orders at discharge.
--- NOTE | 2021-03-07 18:25 | NUR ---
EVER SINCE AM PT HAS BEEN DENYING PAIN, PT YOSVANY PAIN IS RELIEVED EASIER WITH HEATING PAD, ARM ELEVATED FOR WHOLE DAY, BLOOD NOW AVAILABLE FOR ADMINISTRATION, CALL LIGHT WITHIN REACH, NO OTHER NEEDS AT THIS TIME.
[2021-03-07 19:28] VITALS: BP 126/63; PULSE 65; TEMP 98.8
--- NOTE | 2021-03-07 20:00 | NUR ---
Assessment complete. Patient is alert and oriented with complaints of right arm pain, 8/10. PRN dilaudid administered. Right arm is still edematous and elevated on pillow; upper fistula still has audible bruit and palpable thrill; lower fistula is not accessible and has no thrill or bruit. No edema on lower extremities is noted. HR is irregular with normal rhythm. Lung sounds are clear over diminished. Bed alarm set and call light in reach. Will continue to monitor.
[2021-03-08] VITALS (12 sets, daily range): BP systolic 121–149; BP diastolic 53–111; PULSE 76–102; TEMP 98.1–99.1
--- NOTE | 2021-03-08 00:15 | NUR ---
1 UNIT PRBC TRANSFUSION INITIATED AT THIS TIME. PATIENT EDUCATED ON S/S TRANSFUSION REACTION. REMAINED AT BEDSIDE FOR FRST 15 MINUTES OF TRANSFUSION. VITALS STABLE. WILL CONTINUE TO MONITOR.
--- NOTE | 2021-03-08 03:45 | NUR ---
2ND UNIT PRBC INITIATED AT THIS TIME. PATIENT TOLERATED FIRST TRANSFUSION WITH NO COMPLICATIONS. REMAINED AT BEDSIDE FOR FIRST 15 MINUTES OF TRANSFUSION. VITAL SIGNS STABLE. WILL CONTINUE TO MONITOR.
--- NOTE | 2021-03-08 06:05 | NUR ---
2nd transfusion of PRBC complete. Patient tolerated well with no adverse side effects. Will continue to monitor.
[2021-03-08 08:48] LABS: BASO % 0.4 % (0.0-2.0); EOS # 0.3 (0.0-0.7); EOS % 3.4 % (0-4.0); GRAN # 5.6 (1.4-6.5); GRAN % 75.1 % (42.2-75.2); LYMPH # 0.6 (1.2-3.4); LYMPH % 8.1 % (20.0-51.0); MEAN CORPUSCULAR HGB CONC 32 g/dl (33.0-37.0); MEAN PLATELET VOLUME 10.3 fl (7.4-10.4); MONO # 0.9 (0.1-0.6); MONO % 12.7 % (1.7-9.3); PLATELET COUNT 177 K/mm3 (130-400); REDCELL DISTRIBUTION WIDTH-CV 24.5 % (11.5-14.5)
[2021-03-08 08:59] LABS: ALBUMIN 3.3 gm/dL (3.5-5.0); CALCIUM 8.9 mg/dL (8.4-10.2); CREATININE, serum 6.89 (0.66-1.25); PHOSPHOROUS 2.2 mg/dL (2.5-4.5); POTASSIUM 4.4 mmol/L (3.4-5.0)
[2021-03-08 09:05] LABS: HEMATOCRIT 28.5 % (42.0-52.0); HEMOGLOBIN 9.1 g/dl (13.5-18.0); MEAN CORPUSCULAR HEMOGLOBIN 34 pg (27.0-31.0)
[2021-03-08 09:08] LABS: MEAN CELL VOLUME 106 fl (80.0-100.0)
--- NOTE | 2021-03-08 09:38 | NUR ---
UPDATED PT DAUGHTER ON PT STATUS
--- NOTE | 2021-03-08 12:22 | NUR ---
Patient tolerated HD tx with 1.7 L fluid removal. Next HD tx scheduled tomorrow @ the clinic, Friday03/09/2021.
--- NOTE | 2021-03-08 12:34 | NUR ---
PT IV REMOVED, DISCHARGE EDUCATION PROVIDED, NO OTHER QUESTIONS AT THIS TIME, PT ESCORTED OUT VIA WHEELCHAIR.
--- NOTE | 2021-03-08 12:54 | NUR ---
Consultants Intern contacted Jedi at [facility] then faxed discharge orders and discharge summary.
[2021-08-15] MEDS ORDERED: PLAVIX 75MG TAB75 MG PO (09:34)
[2021-08-17] MEDS ORDERED: PREDNISONE10 MG PO (14:05)
[2021-08-17] MEDS ORDERED: RT ADVAIR 228 DISKUS IH (14:07)
[2021-08-17] MEDS ORDERED: SPIRIVA RE2.5 MCG/Ac IH (14:08)
[2021-09-10] MEDS ORDERED: REGLAN 5MG T5 MG/TAB PO (02:02)
[2021-09-13] MEDS ORDERED: MONODOX100 PO (11:51)
[2021-09-13] MEDS ORDERED: CEFTIN500 MG PO (11:51)
[2021-09-13] MEDS ORDERED: MUCUS RELIEF200 MG PO (11:52)
[2021-09-13] MEDS ORDERED: UNIPHYL 400MG400 MG PO (11:57)
[2021-09-13] MEDS ORDERED: PREDNISONE10 MG PO (11:57)
== END 2021-03-08 12:35 | disposition home or self-care (01) | DRG 640 ==
LOC: COL.ER 13:23 → MEDICAL 15:22
PROVIDERS: Emergency Medicine; ADMIT Internal Medicine Nephrology
PROC: 5A1D70Z Performance of Urinary Filtration, Intermittent, Less than 6 Hours Per Day (ICD-10-PCS; principal; 2021-03-08)
DX: E87.70 Fluid overload, unspecified (principal); N18.6 End stage renal disease; I12.0 Hypertensive chronic kidney disease with stage 5 chronic kidney disease or end stage renal disease; E46 Unspecified protein-calorie malnutrition; R09.02 Hypoxemia; R00.1 Bradycardia, unspecified; I27.20 Pulmonary hypertension, unspecified; D63.1 Anemia in chronic kidney disease
CPT/HCPCS: J1170; J1644; J1756; J2916; J7030; P9016; Q5105